=== PATIENT | male | born 1990 | race Caucasian/White ===

== ENCOUNTER 2025-05-12 10:55 | Emergency (ER) | payer BC, SELFPAY ==
[2025-05-12] VITALS (12 sets, daily range): BP systolic 106–120; BP diastolic 55–85
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
[2025-05-12] MEDS: ZOFRAN 4 MG IV (12:29)
[2025-05-12] MEDS: DILAUDID 1 MG IV (12:29)
== END 2025-05-12 16:17 | disposition home or self-care (01) ==
LOC: EMR 10:55
PROVIDERS: EMERGENCY PHYSICIAN Emergency Medicine; FAMILY PHYSICIAN Family Medicine
DX: S43.025A Posterior dislocation of left humerus, initial encounter (principal); S30.811A Abrasion of abdominal wall, initial encounter; S40.212A Abrasion of left shoulder, initial encounter; V29.888A Rider (driver) (passenger) of other motorcycle injured in other specified transport accidents, initial encounter
CPT/HCPCS: 23650; 99152; 99285; 96374; 96375; 70450; 73020; 73030

== ENCOUNTER 2025-08-17 06:46 | Outpatient (RCR) | payer BC, SELFPAY | END 2025-08-17 23:59 | disposition home or self-care (01) | LOC: RPT 06:46 | PROVIDERS: ATTENDING PHYSICIAN Orthopaedic Surgery Hand Surgery; FAMILY PHYSICIAN Family Medicine | DX: M25.512 Pain in left shoulder (principal); Z73.6 Limitation of activities due to disability; M62.81 Muscle weakness (generalized); R20.0 Anesthesia of skin; V19.3XXD Pedal cyclist (driver) (passenger) injured in unspecified nontraffic accident, subsequent encounter | CPT/HCPCS: 97010; 97110; 97112; 97140; 97161 ==

== ENCOUNTER 2025-09-17 06:42 | Outpatient (RCR) | payer BC, SELFPAY | END 2025-09-17 23:59 | disposition home or self-care (01) | LOC: RPT 06:42 | PROVIDERS: ATTENDING PHYSICIAN Orthopaedic Surgery Hand Surgery; FAMILY PHYSICIAN Family Medicine | DX: M25.512 Pain in left shoulder (principal); Z73.6 Limitation of activities due to disability; M62.81 Muscle weakness (generalized); R20.0 Anesthesia of skin; V19.3XXD Pedal cyclist (driver) (passenger) injured in unspecified nontraffic accident, subsequent encounter | CPT/HCPCS: 97110; 97112 ==